=== PATIENT | male | born 1950 | race Two or more races ===

== ENCOUNTER → 2018-11-08 09:36 | Outpatient (CLI) | payer OTHER ==
[~2018-11-08 09:36] MED LIST: LISINOPRIL-HCT1 EAC7 PO
[2018-11-08 11:34] LABS: BASOPHILS 0.6 % (0-2); EOSINOPHILS 2.5 % (0-7); HEMOGLOBIN 16.5 g/dL (13.5-17.5); LYMPHOCYTES 27.8 % (15-50); MCH 34.4 pg (26.0-34.0); MCHC 35.9 g/dL (31.0-37.0); MEAN PLATELET VOLUME 9.4 fL (7.4-10.4); MONOCYTES 9.1 % (2-11); PLATELET COUNT 181 10x3/uL (130-400); RBC 4.79 10x6/uL (4.20-6.10); RDW 12.3 % (11.5-14.5); WBC 4.9 10x3/uL (4.8-10.8)
[2018-11-08 11:48] LABS: APTT 29.3 SECONDS (22.8-39.4); INR 1.02 (0.85-1.17); PROTIME 12.9 SECONDS (11.6-15.0)
[2018-11-08 11:57] LABS: % SATURATION 49 % (15-55); IRON 168 ug/dl (35-150); TOTAL IRON BIND CAPACITY 342 ug/dl (260-445); UNSAT IRON BIND CAPACITY 174 ug/dl (150-375)
[2018-11-08 12:19] LABS: ALBUMIN 3.8 g/dL (3.4-5.0); ALKALINE PHOSPHATASE 119 U/L (46-116); ALT (SGPT) 340 U/L (10-68); BILIRUBIN - DIRECT 0.31 mg/dL (0.00-0.30); BILIRUBIN - INDIRECT 0.41 mg/dL (0.00-1.00); BILIRUBIN - TOTAL 0.72 mg/dL (0.2-1.3); CALC OSMOLALITY 283 mosm/kg (275-300); CALCIUM 9.6 mg/dL (8.5-10.1); CARBON DIOXIDE 30.2 mmol/L (21.0-32.0); CHLORIDE - SERUM 104 mmol/L (98-107); CHOL - HDL RATIO 3.9 ratio (2.3-4.9); CHOLESTEROL, TOTAL 234 mg/dL (0-200); FERRITIN 939 ng/mL (3-244); GAMMA GT 761 U/L (5-85); GLUCOSE 100 mg/dL (74-106); HDL CHOLESTEROL 60 mg/dL (32-96); LDL CHOLESTEROL 144 mg/dL (0-100); LDL-HDL RATIO 2.4 ratio (1.5-3.5); POTASSIUM - SERUM 4.2 mmol/L (3.5-5.1); PROTEIN - SERUM 7.3 g/dL (6.4-8.2); SODIUM 143 mmol/L (136-145); TRIGLYCERIDE 153 mg/dL (30-200); UREA NITROGEN 11 mg/dL (7-18); eGFR NON AFRICAN AMERICAN 79 mL/min (90-120)
[2018-11-09 07:13] LABS: HEPATITIS C ANTIBODY <0.1 (0.0-0.9)
[2018-11-09 08:11] LABS: HAPTOGLOBIN 102 mg/dL (34-200)
[2018-11-09 09:09] LABS: ALPHA FETOPROTEIN -(TUMOR MRK) 7.6 ng/mL (0.0-8.3)
[2018-11-10 16:07] LABS: MITOCHONDRIAL ANTIBODY <20.0 Units (0.0-20.0); SMOOTH MUSCLE ABS (ACTIN) 11 Units (0-19)
[2018-11-11 12:09] LABS: ANA REFLEX - DIRECT Negative (Negative)
[2018-12-13 08:23] VITALS: BMI 37.3
== END | disposition home or self-care (01) ==
LOC: D.LAB 09:36
PROVIDERS: ATTEND Internal Medicine Gastroenterology
DX: R74.8 Abnormal levels of other serum enzymes (principal); K92.1 Melena

== ENCOUNTER 2018-12-13 07:10 | Outpatient (CLI) | payer MEDICARE, OTHER ==
--- NOTE | 2018-12-12 11:27 | NUR ---
PT CALLED INSTRUCT NPO AFTER MIDNIGHT. OK FOR SIP OF WATER WITH MEDS IN AM. DENIES ANY BLOODTHINNERS. WILL BE IN REGISTRATION AT 111.
[~2018-12-13] VITALS: Ht 165.1 cm; Wt 101.8 kg
[2018-12-13 07:40] LABS: BASOPHILS 0.4 % (0-2); EOSINOPHILS 2.9 % (0-7); HEMATOCRIT 45.5 % (42.0-54.0); HEMOGLOBIN 16.3 g/dL (13.5-17.5); IMMATURE GRANULOCYTES 0.2 % (0-5); LYMPHOCYTES 31.2 % (15-50); MCH 34.2 pg (26.0-34.0); MCHC 35.8 g/dL (31.0-37.0); MCV 95.4 fL (80.0-100.0); MEAN PLATELET VOLUME 9.4 fL (7.4-10.4); MONOCYTES 9.8 % (2-11); NEUTROPHILS 55.5 % (40-80); PLATELET COUNT 167 10x3/uL (130-400); RBC 4.77 10x6/uL (4.20-6.10); RDW 12.4 % (11.5-14.5); WBC 5.1 10x3/uL (4.8-10.8)
[2018-12-13 07:47] LABS: CALC OSMOLALITY 283 mosm/kg (275-300); CALCIUM 9.3 mg/dL (8.5-10.1); CHLORIDE - SERUM 104 mmol/L (98-107); CREATININE - SERUM 0.8 mg/dL (0.6-1.3); GLUCOSE 99 mg/dL (74-106); POTASSIUM - SERUM 4.1 mmol/L (3.5-5.1); SODIUM 142 mmol/L (136-145); UREA NITROGEN 14 mg/dL (7-18); eGFR NON AFRICAN AMERICAN > 90 mL/min (90-120)
[2018-12-13 07:53] LABS: APTT 29.8 SECONDS (22.8-39.4); INR 0.98 (0.85-1.17); PROTIME 12.5 SECONDS (11.6-15.0)
[2018-12-13] MEDS ORDERED: LISINOPRIL-HCT1 EAC7 PO (08:15)
[2018-12-13 08:23] VITALS: BP 139/81; Ht 165.1 cm; Wt 101.8 kg
== END 2018-12-13 14:02 | disposition home or self-care (01) ==
LOC: D.SP 07:10 → D.CT 10:00 → D.SP 14:02
PROVIDERS: Radiology Diagnostic Radiology; ATTEND Internal Medicine Gastroenterology
DX: R94.5 Abnormal results of liver function studies (principal); R79.89 Other specified abnormal findings of blood chemistry; K76.0 Fatty (change of) liver, not elsewhere classified

== ENCOUNTER → 2019-03-17 09:45 | Outpatient (CLI) | payer MEDICARE ==
[2018-12-13 08:23] VITALS: BMI 37.3
== END | disposition home or self-care (01) ==
LOC: D.LAB 09:45
PROVIDERS: ATTEND Internal Medicine Gastroenterology
DX: R79.9 Abnormal finding of blood chemistry, unspecified (principal); K76.0 Fatty (change of) liver, not elsewhere classified

== ENCOUNTER → 2020-06-25 08:33 | Outpatient (CLI) | payer MEDICARE ==
[2018-12-13 08:23] VITALS: BMI 37.3
[2020-06-25 09:14] LABS: ALBUMIN 3.7 g/dL (3.4-5.0); BILIRUBIN - DIRECT 0.42 mg/dL (0.00-0.30); BILIRUBIN - INDIRECT 0.68 mg/dL (0.00-1.00); BILIRUBIN - TOTAL 1.1 mg/dL (0.2-1.3); PROTEIN - SERUM 7.6 g/dL (6.4-8.2)
== END | disposition home or self-care (01) ==
LOC: D.LAB 08:00 → D.US 10:00
PROVIDERS: ATTEND Internal Medicine Gastroenterology
DX: K76.0 Fatty (change of) liver, not elsewhere classified (principal)